=== PATIENT | female | born 1985 | race Caucasian/White ===

== ENCOUNTER 2017-11-05 10:04 | Emergency (ER) | payer OTHER ==
[2017-11-05] MEDS ORDERED: IPRATROPIUM/ALBUTEROL 0.5-2.5 MG/3 ML AMPUL NEB ONE (11:09)
--- NOTE | 2017-11-05 11:13 | ER Document Report ---
ED General - General Chief Complaint: Headache Stated Complaint: COUGH HEADACHE Time Seen by Provider: 11/05/17 10:59 Mode of Arrival: Ambulatory Information source: Patient, Relative TRAVEL OUTSIDE OF THE [place] IN LAST 30 DAYS: No - HPI Notes: 32-year-old female who was sent over by [facility] due to not being able to see her presents to the ED with complaints of cough ST,congestion and a severe headache from a congestion for the last week. Has tried [id number] sinus and cold medication without relief. Reports pain is 10 out of 10. Denies worse headache of life. Eating and drinking without issues. Tried Mucinex without any relief. Worse with time, nothing makes better. Denies fever, chills, chest pain, palpitations, shortness of breath, dyspnea, nausea, vomiting, diarrhea, abdominal pain, hematuria,blurred vision, double vision, loss of vision, speech changes, LH, dizziness, syncope, headaches, wheezing, neck pain, weakness, bowel or bladder dysfunction, saddle anesthesia, numbness or tingling in bilateral upper or lower extremities equally, muscle paralysis, weakness in bilateral upper or lower extremities equally or rash. Denies IV drug use. - Related Data Allergies/Adverse Reactions: No Known Allergies Allergy (Verified 11/05/17 10:58) Past Medical History - General Information source: Patient - Social History Smoking Status: Never Smoker Family History: Reviewed & Not Pertinent Review of Systems - Review of Systems Constitutional: See HPI EENT: See HPI Cardiovascular: No symptoms reported Respiratory: No symptoms reported Gastrointestinal: No symptoms reported Genitourinary: No symptoms reported Female Genitourinary: No symptoms reported Musculoskeletal: No symptoms reported Skin: No symptoms reported Hematologic/Lymphatic: No symptoms reported Neurological/Psychological: No symptoms reported Physical Exam - Vital signs Vitals: Temp Pulse Resp BP Pulse Ox 98.2 F 69 18 125/75 97 11/05/17 10:28 11/05/17 10:28 11/05/17 10:28 11/05/17 10:28 11/05/17 10:28 - Notes Notes: PHYSICAL EXAMINATION: GENERAL: Well-appearing, well-nourished and in no acute distress. HEAD: Atraumatic, normocephalic. EYES: Pupils equal round and reactive to light, extraocular movements intact, conjunctiva are normal. ENT: TM intact with bilateral serous effusion, no erythema. Nares boggy bilaterally, oropharynx with erythema without exudates. Moist mucous membranes. NECK:normal range of motion, supple without lymphadenopathy LUNGS: Diminished breath sounds in bilateral upper lobes, after breathing treatment, breath sounds clear to auscultation bilaterally and equal. No wheezes rales or rhonchi. HEART: Regular rate and rhythm without murmurs ABDOMEN: Soft, nontender, nondistended abdomen. No guarding, no rebound. No masses appreciated. Female : deferred Musculoskeletal: Normal range of motion, no pitting or edema. No cyanosis. NEUROLOGICAL: Cranial nerves grossly intact. Normal speech, normal gait. Normal sensory, motor exams PSYCH: Normal mood, normal affect. SKIN: Warm, Dry, normal turgor, no rashes or lesions noted. Course - Re-evaluation Re-evalutation: 11/05/17 11:12 31-year-old female is afebrile vitals stable and in no distress presents for evaluation of sore throat, congestion, cough with headache. Chest x-ray negative for any acute pneumonia or any other pulmonary issue. Rapid strep negative. Patient did receive DuoNeb which did improve her breathing. Is here symptoms are consistent with acute sinusitis and with negative chest x-ray patient has a likely viral bronchitis. We will treat it accordingly. Patient given work note. After performing a Medical Screening Examination, I estimate there is LOW risk for ACUTE CORONARY SYNDROME, PULMONARY EMBOLI, RESPIRATORY FAILURE, SEPSIS OR MENINGITIS, thus I consider the discharge disposition reasonable. I have reevaluated this patient multiple times and no significant life threatening changes are noted. The patient and I have discussed the diagnosis and risks, and we agree with discharging home with close follow-up. We also discussed returning to the Emergency Department immediately if new or worsening symptoms occur. We have discussed the symptoms which are most concerning (e.g., changing or worsening pain, trouble swallowing or breathing, neck stiffness, fever) that necessitate immediate return. Advised to carry Ventolin inhaler new person, take steroids as directed. Take Tessalon Perles as directed. Suck on cough drops and jelly ranchers to help decrease postnasal drip cough. Take decongestants. Follow-up with primary care provider within the next 3 days for reevaluation. Patient verbalized understanding of this plan of care and agree with plan of care. Patient was discharged home. 11/05/17 15:48 - Vital Signs Vital signs: Temp Pulse Resp BP Pulse Ox 98.0 F 78 16 118/74 100 11/05/17 13:59 11/05/17 13:59 11/05/17 13:59 11/05/17 13:59 11/05/17 13:59 Discharge - Discharge Clinical Impression: Acute sinusitis, Cough, URI (upper respiratory infection) Condition: Stable Disposition: HOME, SELF-CARE Instructions: Headache ([facility]), Sinusitis ([facility]), Upper Respiratory Illness ([facility]) Prescriptions: Benzonatate [Tessalon Perles 100 mg Capsule] 100 mg PO Q8HP PRN #20 capsule PRN Reason: Albuterol Sulfate [Ventolin Hfa] 1 - 2 puff IH Q4 PRN #1 hfa.aer.ad PRN Reason: Amox Tr/Potassium Clavulanate [Augmentin 875-125 Tablet] 1 tab PO BID 10 Days # 20 tablet Prednisone 20 mg PO BID #10 tablet Forms: Return to Work Referrals: MAGGY REY MD [ACTIVE STAFF] - Follow up in 3-5 days
--- NOTE | 2017-11-05 12:38 | RADIOLOGY REPORT (SQ) ---
EXAM DESCRIPTION: CHEST 2 VIEWS COMPLETED DATE/TIME: 11/05/2017 11:43 am REASON FOR STUDY: productive cough x 1 week COMPARISON: None. EXAM PARAMETERS: NUMBER OF VIEWS: two views TECHNIQUE: Digital Frontal and Lateral radiographic views of the chest acquired. RADIATION DOSE: NA LIMITATIONS: none FINDINGS: LUNGS AND PLEURA: No opacities, masses or pneumothorax. No pleural effusion. MEDIASTINUM AND HILAR STRUCTURES: No masses or contour abnormalities. HEART AND VASCULAR STRUCTURES: Heart normal size. No evidence for failure. BONES: No acute findings. HARDWARE: None in the chest. OTHER: No other significant finding. IMPRESSION: NO ACUTE RADIOGRAPHIC FINDING IN THE CHEST. TECHNICAL DOCUMENTATION: JOB ID: [id number] [employer]- All Rights Reserved Reading location - IP/workstation name: [email or web address]
[2017-11-05 14:04] VITALS: BP 118/74
== END 2017-11-05 14:00 | disposition home or self-care (01) ==
LOC: ER 10:04
DX: J01.90 Acute sinusitis, unspecified (principal); J06.9 Acute upper respiratory infection, unspecified
CPT/HCPCS: 94640; 99284; 87070; 87880; 71046; J7620

== ENCOUNTER 2017-11-23 08:47 | Emergency (ER) | payer OTHER ==
[2017-11-23 08:55] VITALS: BP 137/83
--- NOTE | 2017-11-23 09:10 | ER Document Report ---
HPI - HPI Patient complains to provider of: Head congestion and cough Onset: Other - Thursday Pain Level: 3 Context: 32-year-old female had a upper respiratory infection treated with amoxicillin earlier this month she was well for a week and this restarted with a vengeance on Thursday. She is severe maxillary sinus pain and congestion with postnasal drip. She coughs at night. No fever or chills. No chest pain or shortness of breath. Associated Symptoms: None Exacerbated by: Denies Relieved by: Denies Similar symptoms previously: Yes Recently seen / treated by doctor: Yes - ROS ROS below otherwise negative: Yes Systems Reviewed and Negative: Yes All other systems reviewed and negative Past Medical History - General Information source: Patient - Social History Smoking Status: Never Smoker Lives with: Family Family History: Reviewed & Not Pertinent - Medical History Medical History: Negative Renal/ Medical History: Denies: Hx Peritoneal Dialysis Past Surgical History: Reports: Hx Orthopedic Surgery - knee Vertical Provider Document - CONSTITUTIONAL Agree With Documented VS: Yes Exam Limitations: No Limitations - INFECTION CONTROL TRAVEL OUTSIDE OF THE [place] IN LAST 30 DAYS: No - HEENT HEENT: Pharyngeal Erythema. negative: Conjuctival Injection, Tympanic Membrane Red, Tympanic Membrane Bulging Notes: Boggy naris with some tenderness over bilateral maxillary sinuses no facial swelling - NECK Neck: Supple. negative: Lymphadenopathy-Left, Lymphadenopathy-Right - RESPIRATORY Respiratory: Breath Sounds Normal, No Respiratory Distress - CARDIOVASCULAR Cardiovascular: Regular Rate, Regular Rhythm - NEURO Level of Consciousness: Awake - DERM Integumentary: No Rash Course - Vital Signs Vital signs: Temp Pulse Resp BP Pulse Ox 98.0 F 83 16 137/83 H 97 11/23/17 08:54 11/23/17 08:54 11/23/17 08:54 11/23/17 08:54 11/23/17 08:54 Discharge - Discharge Clinical Impression: Sinusitis Qualifiers: Sinusitis location: unspecified location Chronicity: acute Recurrence: non- recurrent Qualified Code(s): J01.90 - Acute sinusitis, unspecified Condition: Good Disposition: HOME, SELF-CARE Instructions: Sinusitis ([facility]), Augmentin ([facility]) Additional Instructions: Warm compresses to your sinuses Saline nasal spray 4 times a day Augmentin for 10 days See her primary care doctor for recheck Return to the emergency room for worsening of the symptoms Prescriptions: Amoxicillin/Potassium Clav [Augmentin 792-835 Tablet] 1 each PO BID #20 tablet Forms: Return to Work
== END 2017-11-23 09:20 | disposition home or self-care (01) ==
LOC: ER 08:47
DX: J01.90 Acute sinusitis, unspecified (principal); R05 Cough
CPT/HCPCS: 99283